=== PATIENT | female | born 1965 | race Caucasian/White ===

== ENCOUNTER 2020-01-04 19:04 | Inpatient (IN) | payer OTHER ==
[~2020-01-04] VITALS: Ht 160 cm; Wt 90.7 kg
--- NOTE | 2020-01-04 19:31 | NUR ---
PACIENTE ALERTA,ACTIVA Y OROENTADA.REFIERE DOLOR ABDOMINAL DESDE SANTI EN LA TARDE.INDICA LE DIJERON TENER APENDICITIS REFLEJADO EN CT.
[2020-01-04] MEDS ORDERED: COZAAR50 MG (19:32)
[2020-01-04] MEDS ORDERED: HYDROCHLORIC AC25 ML (19:33)
--- NOTE | 2020-01-04 20:23 | NUR ---
PACIENTE ALERTA Y ORIENTADA X3. MANEJADA POR MISS. MCGINNIS QUIEN ORIENTA A PACIENTE SOBRE TX Y PROCEDIMIENTO A REALIZAR Y REFIERE ENTENDER. ADMINISTRA MEDICAMENTO MOLINA ORDEN MEDICA. REALIZA MUESTRAS DE LABORATORIO BAJO MEDIDAS ASEPTICAS. CANALIZACION PATENTE Y SARAVANAN DE EDEMA Y ERITEMA. SE MANTIENE BAJO OBSERVACION POR CAMBIOS SIGNIFICATIVOS.
[2020-01-06] MEDS ORDERED: AMOX1TAB5 PO (14:15)
[2020-01-06] MEDS ORDERED: PROTONIX40 MG PO (14:15)
== END 2020-01-06 14:54 | disposition home or self-care (01) | DRG 343 ==
LOC: ER 19:04 → SEC-K 21:14 → SURH 21:14 → O/R 22:17 → SURH 01-05 08:26
PROVIDERS: ADMIT Surgery
PROC: 0DTJ0ZZ Resection of Appendix, Open Approach (ICD-10-PCS; principal; 2020-01-05)
PROC: 4A09X1Z Measurement of Respiratory Capacity, External Approach (ICD-10-PCS; 2020-01-05)
DX: K35.890 Other acute appendicitis without perforation or gangrene (principal); I10 Essential (primary) hypertension